=== PATIENT | male | born 1965 | race Caucasian/White ===

== ENCOUNTER 2020-07-12 17:58 | Day surgery (SDCO) | payer OTHER ==
[~2020-07-12 17:58] MED LIST: AUGMENTIN 500-1 EACH PO; HYDRALAZINE 50M50 MG PO; K-DUR20 MEQ PO; LANTUS **100 UNITS/ SC; LASIX40 MG PO; LEVAQUIN750 MG PO; LIPITOR40 MG PO; LISINOPRIL40 MG PO; METFORMIN HCL500 MG PO; NORVASC5 MG PO; NOVOLOG VI100 UNIT/1 SQ
[2020-07-12 18:56] LABS: BASOPHIL 0.7 % (0-2); EOSINOPHIL 1.3 % (0-5); HCT 44.3 % (42.0-52.0); HGB 14.6 g/dl (13.2-18.0); LYMPHOCYTE 20.4 % (15-48); MCH 29.9 pg (25.0-31.0); MCV 90.8 fL (78.0-100.0); MONOCYTE 10.6 % (0-12); MPV 10.6 fL (6.0-9.5); NEUTROPHIL 65.9 % (41-80); NRBC 0; PLT 179 K/uL (150-400); RBC 4.88 M/uL (4.70-6.00); RDW 12.6 % (11.5-14.0)
[2020-07-12 19:13] LABS: ALBUMIN 3.3 g/dL (3.4-5.0); BILIRUBIN - TOTAL 0.4 mg/dL (0.2-1.0); BUN/CREAT RATIO (CALC) 19.4 RATIO; CREATININE 0.67 mg/dL (0.67-1.17); GLOBULIN (CALCULATION) 3.3 g/dL; POTASSIUM 3.4 mmol/L (3.5-5.1); TOTAL PROTEIN 6.6 g/dL (6.4-8.2)
[2020-07-12 19:19] LABS: INR 1.04 (0.9-1.2); PROTHROMBIN TIME 12.9 SECONDS (11.4-13.6); PTT 25.2 SECONDS (22.2-34.7)
[2020-07-12 19:26] LABS: CKMB 0.8 ng/mL (0.0-3.6)
[2020-07-12] MEDS ORDERED: ASPIRIN81 MG PO (23:16)
[2020-07-12] MEDS ORDERED: HUMALOG 75100 UNIT/M SC (23:16)
[2020-07-12] MEDS ORDERED: PLAVIX75 M1 PO (23:34)
[2020-07-13 06:56] LABS: BASOPHIL 0.5 % (0-2); EOSINOPHIL 1.7 % (0-5); HCT 43.1 % (42.0-52.0); HGB 14.4 g/dl (13.2-18.0); LYMPHOCYTE 24.5 % (15-48); MCH 30.6 pg (25.0-31.0); MCHC 33.4 g/dL (32.0-36.0); MCV 91.5 fL (78.0-100.0); MONOCYTE 11.9 % (0-12); MPV 10.7 fL (6.0-9.5); NRBC 0; PLT 179 K/uL (150-400); RBC 4.71 M/uL (4.70-6.00); RDW 12.6 % (11.5-14.0); WBC 7.8 K/uL (4.0-10.5)
[2020-07-13 07:14] LABS: BUN/CREAT RATIO (CALC) 20.8 RATIO; CREATININE 0.77 mg/dL (0.67-1.17); POTASSIUM 3.9 mmol/L (3.5-5.1)
[2020-07-13] MEDS ORDERED: ISOSORBIDE MONO30 MG PO (09:58)
[2020-07-13] MEDS ORDERED: NITROQUIK SL0.4 MG SL (09:58)
--- NOTE | 2020-07-13 12:20 | NUR ---
PATIENT DISCHARGED TO FRONT DOOR. IV AND MONITOR DC'D. VERBALIZED AN UNDERSTANDING OF DISCHARGE INSTRUCTION. OUTPATIENT TO CALL PATIENT ABOUT STRESS TEST. APPT MADE [facility] FOR THURSDAY. WORK EXCUSE GIVEN UNTIL 07/17/2020
== END 2020-07-13 12:08 | disposition home or self-care (01) ==
LOC: FER 17:58 → FMS 22:03
PROVIDERS: Nurse Practitioner; Physician Assistant Medical; ADMIT Internal Medicine
DX: I25.110 Atherosclerotic heart disease of native coronary artery with unstable angina pectoris (principal); E11.9 Type 2 diabetes mellitus without complications; E78.5 Hyperlipidemia, unspecified; F32.9 Major depressive disorder, single episode, unspecified; G47.00 Insomnia, unspecified; M17.12 Unilateral primary osteoarthritis, left knee; I10 Essential (primary) hypertension; G47.30 Sleep apnea, unspecified; E66.3 Overweight; Z68.37 Body mass index [BMI] 37.0-37.9, adult; Z79.02 Long term (current) use of antithrombotics/antiplatelets; Z79.4 Long term (current) use of insulin; Z79.82 Long term (current) use of aspirin; Z79.899 Other long term (current) drug therapy; Z95.5 Presence of coronary angioplasty implant and graft; Z95.820 Peripheral vascular angioplasty status with implants and grafts; Z20.822 Contact with and (suspected) exposure to COVID-19
CPT/HCPCS: 36415; 71045; 80048; 80053; 80061; 82553; 83036; 84484; 85025; 85610; 85730; 93005; G0378; J1650; U0002

== ENCOUNTER 2021-09-10 06:23 | Day surgery (SDC) | payer OTHER ==
[~2021-09-10] VITALS: Ht 160 cm; Wt 94.0 kg
[~2021-09-10 06:23] MED LIST changes: +ASPIRIN81 MG PO; +ESCITALOPRAM OX10 MG PO; +HUMALOG 75100 UNIT/M SC; +ISOSORBIDE MONO30 MG PO; +JARDIANCE25 MG PO; +NITROQUIK SL0.4 MG SL; +PLAVIX75 M1 PO; +TRULICITY1.5 MG/0.5 SC
[2021-09-10] MEDS ORDERED: AMARYL2 MG PO (06:52)
--- NOTE | 2021-09-10 15:20 | NUR ---
PT HAD A LTK THIS DATE. PT WILL D/C HOME WITH SPOUSE. [facility] TO DELIVER A RW. PT. REQUESTED [facility]. FIRST APPT IS 09/12/21 @ 3:00 P.M. PT. SIGNED CHOICE FORM.
[2021-09-11 07:12] LABS: BASOPHIL 0.2 % (0-2); EOSINOPHIL 0.3 % (0-5); HCT 35.2 % (42.0-52.0); HGB 11.5 g/dl (13.2-18.0); LYMPHOCYTE 11.2 % (15-48); MCH 30.7 pg (25.0-31.0); MCHC 32.7 g/dL (32.0-36.0); MCV 93.9 fL (78.0-100.0); MONOCYTE 11.5 % (0-12); NEUTROPHIL 76.2 % (41-80); NRBC 0; PLT 168 K/uL (150-400); RBC 3.75 M/uL (4.70-6.00); RDW 13.5 % (11.5-14.0)
[2021-09-11 08:06] LABS: BUN/CREAT RATIO (CALC) 22.5 RATIO; CREATININE 0.89 mg/dL (0.67-1.17); POTASSIUM 3.9 mmol/L (3.5-5.1)
[2021-09-11] MEDS ORDERED: FEOSOL325 MG PO (08:38)
== END 2021-09-11 11:23 | disposition home or self-care (01) ==
LOC: FAS 06:23 → FMS 09:21 → FAS 09-11 11:23
PROVIDERS: Orthopaedic Surgery
DX: M17.12 Unilateral primary osteoarthritis, left knee (principal); M79.4 Hypertrophy of (infrapatellar) fat pad; M21.162 Varus deformity, not elsewhere classified, left knee; I10 Essential (primary) hypertension; E11.9 Type 2 diabetes mellitus without complications; E78.5 Hyperlipidemia, unspecified; I25.10 Atherosclerotic heart disease of native coronary artery without angina pectoris
CPT/HCPCS: 36415; 73560; 80048; 82962; 85025; 86850; 86900; 86901; 94010; 94762; 97110; 97162; 97166; 97530-GP; C1713; C1776; J0171; J0697; J1100; J1170; J1885; J2250; J2270; J2405; J2704; J2795; J3010; J7120